=== PATIENT | male | born 1985 | race Caucasian/White ===

== ENCOUNTER 2022-08-15 20:11 | Emergency (ER) | payer OTHER, SELFPAY ==
[2022-08-15 20:24] VITALS: BP 128/98; PULSE 115; RESP 16; TEMP 37.5; O2SAT 96; BMI 30.3
--- NOTE | 2022-08-15 20:31 | XR_ITS ---
[facility] [place] [id number] Patient Name: DAYANARA CARPIO MRN: [id number] date: 1985 Sex: M Assigned Patient Location: ED.MAIN Current Patient Location: ER Accession/Order Number: [id number] Exam Date: 08/15/2022 21:00 Report Date: 08/15/2022 21:31 At the request of: CHIVO SORIANO Procedure: XR wrist RT min 3V EXAM: XR wrist RT min 3V, XR hand RT min 3V HISTORY: Pain following fall COMPARISON: None. TECHNIQUE: 3 views of the wrist and 3 views of the hand. FINDINGS: IMPRESSION: Comminuted intra-articular volar and radial displaced fracture of the distal radius. Displaced ulnar styloid fracture. Diffuse soft tissue edema. Radiocarpal joint effusion. Volar angulated fracture of the fifth metacarpal neck. Associated soft tissue edema. Remainder of the osseous structures are unremarkable. Orthopedic surgical intervention is necessary. Electronically authenticated by: EBONY OJEDA Date: 08/15/2022 21:31
--- NOTE | 2022-08-15 20:31 | XR_ITS ---
[facility] [place] [id number] Patient Name: DAYANARA CARPIO MRN: [id number] date: 1985 Sex: M Assigned Patient Location: ED.MAIN Current Patient Location: ER Accession/Order Number: [id number] Exam Date: 08/15/2022 21:00 Report Date: 08/15/2022 21:31 At the request of: CHIVO SORIANO Procedure: XR hand RT min 3V EXAM: XR wrist RT min 3V, XR hand RT min 3V HISTORY: Pain following fall COMPARISON: None. TECHNIQUE: 3 views of the wrist and 3 views of the hand. FINDINGS: IMPRESSION: Comminuted intra-articular volar and radial displaced fracture of the distal radius. Displaced ulnar styloid fracture. Diffuse soft tissue edema. Radiocarpal joint effusion. Volar angulated fracture of the fifth metacarpal neck. Associated soft tissue edema. Remainder of the osseous structures are unremarkable. Orthopedic surgical intervention is necessary. Electronically authenticated by: EBONY OJEDA Date: 08/15/2022 21:31
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
[2022-08-15] MEDS: HYDROCODONE/ACETAMINOPHEN 5-325 MG TABLET 2 TAB PO (21:43)
[2022-08-15 21:57] VITALS: BP 131/80; PULSE 104; O2SAT 98
--- NOTE | 2022-08-15 22:10 | PC.NURSE ---
pt right wrist splinted at this time.
== END 2022-08-15 22:25 | disposition home or self-care (01) ==
PROVIDERS: Emergency Provider Internal Medicine
DX: S52.501A Unspecified fracture of the lower end of right radius, initial encounter for closed fracture (principal); W10.9XXA Fall (on) (from) unspecified stairs and steps, initial encounter
CPT/HCPCS: 29125; 73110; 73130; 99284

== ENCOUNTER 2025-01-27 04:20 | Emergency (ER) | payer OTHER, SELFPAY ==
[2025-01-27] VITALS (12 sets, daily range): BP systolic 121–150; BP diastolic 83–100; PULSE 69–90; TEMP 36.4; O2SAT 96–100; BMI 33.2
--- NOTE | 2025-01-27 04:48 | ECG_ITS ---
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 Measurements Intervals [place] Rate: 82 P: 61 WA: 154 QRS: 87 QRSD: 90 T: 44 QT: 336 QTc: 375 Interpretive Statements 1100 Sinus rhythm 2420 RSR (QR) in lead V1/V2, consistent with right ventricular conduction delay 9130 borderline ECG No previous ECG available for comparison Electronically Signed On 01-27-2025 6:55:38 EST by ANDREIA RODRIGUEZ M.D.
--- NOTE | 2025-01-27 04:58 | XR_ITS ---
[place] [id number] Patient Name: DAYANARA CARPIO MRN: [id number] date: 1985 Sex: M Assigned Patient Location: ER Current Patient Location: Accession/Order Number: [id number] Exam Date: 01/27/2025 05:15 Report Date: 01/27/2025 07:13 At the request of: AUSTEN CARRENO DO Procedure: XR chest 2V XR chest 2V 01/27/2025 5:19 AM SIGNS AND SYMPTOMS: ^chest pain PROTOCOL: Frontal and lateral graphs of the chest COMPARISON: None FINDINGS: The trachea is midline. The heart and mediastinal structures are within normal limits. The lung parenchyma is clear. The bony thorax is intact. XR/XR chest 2V IMPRESSION: No acute cardiopulmonary pathology. Impression dictated by: Mark Dodd M.D. 01/27/2025 7:13 AM Dictation Location: [place] [id number] Electronically authenticated by: [id number] Y Date: 01/27/2025 07:13
--- OUTSIDE RECORDS SUMMARY | 2025-01-27 05:04 | XMS_ITS | Clinical Summary ---
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 Role Phone Unavailable Primary Care Provider Unavailabl e Social History Tobacco UseTypesPacks/DayYears UsedDateSmoking Tobacco: Never AssessedSex and Gender InformationValueDate RecordedSex Assigned at BirthNot on fileLegal Sex Male05/13/2022 11:16 PM EDTGender IdentityNot on fileSexual OrientationNot on file Last Filed Vital Signs Vital SignReadingTime TakenCommentsBlood Pressure--Pulse--Temperature-- Respiratory Rate--Oxygen Saturation--Inhaled Oxygen Concentration--Mxznpv61.5 kg (204 lb)08/08/2020 12:00 PM VBEXijrow561.2 cm (5' 7 )08/08/2020 12:00 PM EDTBody Mass Index31.95008/08/2020 12:00 PM EDT Plan of Treatment Not on file
[2025-01-27] MEDS: FAMOTIDINE/PF 20 MG/2 ML VIAL 40 MG IV (05:08)
[2025-01-27 05:14] LABS: Hematocrit 45.3 % (42.0-54.0); Hemoglobin 15.3 g/dL (14.0-18.0); Immature Granulocytes Abs Auto 0.03 10^3/uL (0.00-0.03); Immature Granulocytes Pct Auto 0.4 % (0.0-0.5); Lymphocytes Absolute Auto 1.7 10^3/uL (1.2-3.8); Mean Corpuscular HGB Conc 33.8 g/dL (29.9-35.2); Mean Corpuscular Hemoglobin 27.1 pg (25.9-34.0); Mean Corpuscular Volume 80.2 fL (80.0-94.0); Platelet Count 289 10^3/uL (150-450); Red Blood Count 5.65 10^6/uL (4.70-6.10); White Blood Count 7.4 10^3/uL (4.0-11.0)
[2025-01-27 05:34] LABS: Alanine Aminotransferase 24 U/L (16-63); Albumin Globulin Ratio 1.0; Albumin Level 3.6 g/dL (3.4-5.0); Alkaline Phosphatase 80 U/L (46-116); Anion Gap 11.0; Aspartate Amino Transferase 11 U/L (15-37); Blood Urea Nitrogen 16.0 mg/dL (7.0-18.0); Calcium 9.0 mg/dL (8.5-10.1); Carbon Dioxide 25.6 mmol/L (21.0-32.0); Chloride 104 mmol/L (98-107); Estimated GFR (African America >60 (>=60 mL/min/1.73m^2); Estimated GFR (Non-African Ame >60 (>=60 mL/min/1.73m^2); Globulin 3.5 g/dL; Glucose 121 mg/dL (74-106); Lactate/Lactic Acid 1.7 mmol/L (0.4-2.0); Lipase 39.0 U/L (16.0-77.0); Potassium 3.6 mmol/L (3.5-5.1); Sodium 137 mmol/L (136-145); Total Protein 7.1 g/dL (6.4-8.2)
--- NOTE | 2025-01-27 06:16 | ED_ITS ---
HPI HPI - General Adult General Chief complaint: Chest Pain Stated complaint: chest pain Time Seen by Provider: 01/27/25 04:27 Source: patient Mode of arrival: walk-in Limitations: no limitations History of Present Illness HPI narrative: Patient is a 39-year-old male presenting to the emergency department for evaluation of chest pain. Patient states that he woke up in the middle of the n ight with severe retrosternal chest pain. He states it feels like a burning, stabbing sensation. He has never had symptoms like this in the past. He states the pain is a 4/10 in severity. The pain does not radiate. Nothing seems to make the pain better or worse. He denies any associated shortness of breath, nausea, or vomiting. He states he is otherwise healthy with no chronic medical conditions. He denies recent alcohol use. Related Data Previous Rx's ?Medication ?Instructions ?Recorded famotidine 20 mg tablet 20 mg PO BID PRN heartburn 2 weeks 01/27/25 #28 tabs Allergies Allergy/AdvReac Type Severity Reaction Status Date / Time No Known Drug Allergies Allergy Verified 01/27/25 04:33 Opioid HPI Opioid Management Most Recent Opioid Data: Last Pain Scale 6 Today, 04:40 Review of Systems ROS Status of ROS 10 or more systems reviewed and unremark able except as noted in history and below [facility] Medical History (Updated 01/27/25 @ 05:42 by Clarence Wetzel DO) Sleep apnea ?G47.30 - Sleep apnea, unspecified (ICD-10) Social History Smoking status: Current every day smoker Little interest or pleasure in doing things: not at all Feeling down, depressed, or hopeless: not at all Exam Narrative Exam Narrative: CONSTITUTIONAL: Well-appearing, answering questions and following commands appropriately SKIN: Was warm and dry. EYES: Sclerae white. EARS, NOSE, THROAT: Moist oral mucosa. RESPIRATORY: Clear to auscultation bilaterally, no wheezes, crackles, or stridor, no use of accessory muscles CARDIOVASCULAR: Normal rate and regular rhythm. There is no S3, S4, murmur, rub. GASTROINTESTINAL: There is mild tenderness to palpation in the epigastrium. No rebound tenderness or guarding. MUSCULOSKELETAL: No peripheral edema. NEUROLOGIC: Patient is awake and alert. Facies were symmetrical. Constitutional Vital Signs, click to edit/add: Last Vital Signs Temp 97.5 F L 01/27/25 04:30 Pulse 70 01/27/25 05:40 Resp 20 01/27/25 05:40 BP 121/84 01/27/25 05:30 Pulse Ox 98 01/27/25 05:40 O2 Del Method Room Air 01/27/25 04:30 Course Vital Signs Vital signs: Vital Signs Pulse Oximetry 100 01/27/25 04:25 Temperature 97.5 F L 01/27/25 04:30 Pulse Rate 70 01/27/25 05:40 Respiratory Rate 20 01/27/25 05:40 Blood Pressure 121/84 01/27/25 05:30 Pulse Oximetry 98 01/27/25 05:40 Oxygen Delivery Method Room Air 01/27/25 04:30 Medical Decision Making MDM Narrative Medical decision making narrative: Patient is a 39-year-old male presenting to the emergency department with a 6- hour history of retrosternal chest pain that awoke him during his sleep. His vital signs are within normal limits. He is afebrile and hemodynamically stable. He has clear breath sounds bilaterally and is saturating 98% on room air. There is mild tenderness to palpation in the epigastrium without peritoneal signs. My clinical impression is that the patient's symptoms are secondary to gastritis, GERD, or esophageal spasm. Lower concern for pancreatitis. He has no cardiac risk factors with a HEART score of 0, making cardiogenic etiology such as ACS less likely. Nonetheless, IV was established and laboratory studies were obtained. Patient was given an oral GI cocktail and IV famotidine for treatment. Chest x-ray independently reviewed/interpreted by myself demonstrated no acute cardiopulmonary process. Laboratory studies were unremarkable. No significant electrolyte or metabolic derangement. No evidence of acute kidney injury. No anemia, leukocytosis, or thrombocytopenia. Troponin nonelevated. Lipase nonelevated. 12 Lead EKG: Normal sinus rhythm at a rate of 82. Normal axis. No ST segment elevations. QRS, MI, and QTc interval within normal limits. Final impression: normal sinus rhythm without evidence of acute myocardial ischemia On reevaluation, patient states that his symptoms have completely improved after the GI cocktail. I do believe the patient is stable for discharge. Patient's presentation is most likely consistent with GERD. They were instructed to follow up with his PCP as needed. Return precautions were given including any new or worsening symptoms. They were given a prescription for famotidine as needed. Patient understands and agrees to the plan. FINAL IMPRESSION: #Acute chest pain secondary to GERD DISPOSITION: Discharged home CONDITION: Good Lab Data Lab results reviewed: Yes I reviewed the patient's lab results Labs: Lab Results 01/27/25 Range/Units 05:04 WBC 7.4 (4.0-11.0) 10^3/uL RBC 5.65 (4.70-6.10) 10^6/uL Hgb 15.3 (14.0-18.0) g/dL Hct 45.3 (42.0-54.0) % MCV 80.2 (80.0-94.0) fL MCH 27.1 (25.9-34.0) pg MCHC 33.8 (29.9-35.2) g/dL RDW 12.9 (11.0-15.0) % Plt Count 289 (150-450) 10^3/uL MPV 8.7 L (9.5-13.5) fL Neut % (Auto) 64.4 (43.0-75.0) % Lymph % (Auto) 23.1 (20.5-60.0) % Randolph % (Auto) 6.9 (1.7-12.0) % Eos % (Auto) 4.4 (0.9-7.0) % Baso % (Auto) 0.8 (0.2-2.0) % Neut # (Auto) 4.8 (1.4-6.5) 10^3/uL Lymph # (Auto) 1.7 (1.2-3.8) 10^3/uL Randolph # (Auto) 0.5 (0.3-0.8) 10^3/uL Eos # (Auto) 0.3 (0.0-0.7) 10^3/uL Baso # (Auto) 0.1 (0.0-0.1) 10^3/uL Abs Immat Gran (auto) 0.03 (0.00-0.03) 10^3/uL Imm/Tot Granulo (auto) 0.4 (0.0-0.5) % Sodium 137 (136-145) mmol/L Potassium 3.6 (3.5-5.1) mmol/L Chloride 104 (98-107) mmol/L Carbon Dioxide 25.6 (21.0-32.0) mmol/L Anion Gap 11.0 BUN 16.0 (7.0-18.0) mg/dL Creatinine 0.90 (0.70-1.30) mg/dL Est GFR ( Amer) >60 (>=60 mL/min/1.73m^2) Est GFR (Non-Af Amer) >60 (>=60 mL/min/1.73m^2) BUN/Creatinine Ratio 17.8 Glucose 121 H (74-106) mg/dL Lactate 1.7 (0.4-2.0) mmol/L Calcium 9.0 (8.5-10.1) mg/dL Total Bilirubin 0.1 L (0.2-1.0) mg/dL AST 11 L (15-37) U/L ALT 24 (16-63) U/L Alkaline Phosphatase 80 (46-116) U/L Troponin I High Sens 5.5 (4.0-76.1) pg/mL Total Protein 7.1 (6.4-8.2) g/dL Albumin 3.6 (3.4-5.0) g/dL Globulin 3.5 g/dL Albumin/Globulin Ratio 1.0 Lipase 39.0 (16.0-77.0) U/L Imaging Data Chest x-ray: Attestation: I personally reviewed and interpreted this imaging study as follows: ECG Data Attestation: I personally reviewed and interpreted this ECG as follows: Discharge Plan Discharge Chief Complaint: Chest Pain Clinical Impression: Chest pain due to GERD Patient Disposition: Home, Self-Care Time of Disposition Decision: 05:42 Condition: Good Mode of Transportation: Private Vehicle Prescriptions / Home Meds: New famotidine 20 mg tablet 20 mg PO BID PRN (Reason: heartburn) 14 Days Qty: 28 0RF Print Language: Amharic Instructions: GERD (Gastroesophageal Reflux Disease) (ED) Referrals: Physician,Non-Staff, MD [Primary Care Provider] - 1 week Discharge Date/Time: 01/27/25 05:58
== END 2025-01-27 05:58 | disposition home or self-care (01) ==
PROVIDERS: Emergency Provider Student in an Organized Health Care Education/Training Program
DX: R07.9 Chest pain, unspecified (principal); K21.9 Gastro-esophageal reflux disease without esophagitis; F17.200 Nicotine dependence, unspecified, uncomplicated
CPT/HCPCS: 36415; 71046; 80053; 83605; 83690; 84484; 85025; 93005; 96374; 99285; J3490